=== PATIENT | female | born 1975 | race Asian ===

== ENCOUNTER 2025-07-27 02:38 | Emergency (ER) | payer MEDICAID ==
[~2025-07-27] VITALS: Ht 175.3 cm; Wt 91.0 kg
[2025-07-27 02:42] VITALS: O2SAT 100
[2025-07-27 04:13] LABS: BASOPHILS % 0.4 % (0.0-2.0); EOSINOPHILS % 0.8 % (0.0-5.0); HEMATOCRIT. 29.9 % (36.0-48.0); HEMOGLOBIN. 9.0 g/dL (12.0-16.0); LYMPHOCYTES % 29.1 % (20.0-50.0); MEAN PLATELET VOLUME 7.3 fl (7.4-10.4); MONOCYTES % 5.7 % (2.0-8.0); NEUTROPHILS % 64.0 % (40.0-76.0); PLATELET 295 x1000/uL (130-400); RED BLOOD CELL COUNT 4.34 mill/uL (4.2-5.4); RED CELL DISTRIBUTION WIDTH 16.6 % (11.6-14.6)
[2025-07-27 04:17] LABS: HCG SCREEN NEGATIVE
[2025-07-27 04:18] LABS: ADD RBC MORPHOLOGY YES
[2025-07-27 04:19] LABS: CREATININE 0.8 mg/dL (0.6-1.0); UREA NITROGEN BLOOD 10 mg/dL (9-23)
[2025-07-27 04:55] LABS: PLATELET ESTIMATE NORMAL
[2025-07-27 09:22] VITALS: BP 143/72; PULSE 74; RESP 19; TEMP 36.7; O2SAT 99
== END 2025-07-27 09:35 | disposition home or self-care (01) ==
LOC: ER 03:13
DX: S09.8XXA Other specified injuries of head, initial encounter (principal); E11.9 Type 2 diabetes mellitus without complications; W19.XXXA Unspecified fall, initial encounter; Y93.89 Activity, other specified; Y92.89 Other specified places as the place of occurrence of the external cause; Y99.8 Other external cause status
CPT/HCPCS: 36415; 80048; 84703; 85025; 99284